=== PATIENT | female | born 1990 | race Caucasian/White ===

== ENCOUNTER 2018-02-10 22:33 | Emergency (ER) | payer OTHER ==
[~2018-02-10] VITALS: Ht 165.1 cm; Wt 72.1 kg
[2018-02-10] MEDS ORDERED: AUGMENTIN 875-1 EACH PO ×2 (23:01→23:58)
[2018-02-10] MEDS ORDERED: TOPAMAX 100 MG100 MG PO (23:02)
[2018-02-10] MEDS ORDERED: JUNEL FE 1-201 EACH PO (23:03)
[2018-02-10] MEDS ORDERED: PROZAC20 MG PO (23:03)
[2018-02-10 23:55] VITALS: BP 119/79
[2018-02-10] MEDS ORDERED: NORCO 5-325 TA1 EACH PO (23:57)
== END 2018-02-10 23:55 | disposition home or self-care (01) ==
LOC: M.ERS 22:33
DX: S41.111A Laceration without foreign body of right upper arm, initial encounter (principal); W54.0XXA Bitten by dog, initial encounter; Y93.89 Activity, other specified; Y92.89 Other specified places as the place of occurrence of the external cause; Y99.8 Other external cause status

== ENCOUNTER → 2019-03-23 | Outpatient (CLI) | payer OTHER ==
[~2019-03-23] MED LIST: AUGMENTIN 875-1 EACH PO; JUNEL FE 1-201 EACH PO; NORCO 5-325 TA1 EACH PO; PROZAC20 MG PO; TOPAMAX 100 MG100 MG PO
[2019-03-23 11:12] LABS: CREATININE 0.8 mg/dL (0.6-1.3)
== END ==
LOC: M.CT 10:35
PROVIDERS: Nurse Practitioner Family
DX: K76.89 Other specified diseases of liver (principal)

== ENCOUNTER → 2019-04-03 | Outpatient (CLI) | payer OTHER | LOC: M.MRI 07:24 | DX: R93.89 Abnormal findings on diagnostic imaging of other specified body structures (principal); K76.9 Liver disease, unspecified ==